=== PATIENT | female | born 1985 | race Caucasian/White ===

== ENCOUNTER 2022-12-03 18:29 | Emergency (ER) | payer OTHER ==
[~2022-12-03] VITALS: Wt 113.4 kg
[~2022-12-03 18:29] MED LIST: AMOXIL500 MG PO; BACTRIM DS 8001 TA1 PO; CIPRO500 MG PO; CLARITIN10 MG PO; COLACE50 MG PO; COMBIVENT1 ARO IH; IRON325 M1 PO; MEDROL DOSEPAK4 MG PO; METHERGINE0.2 MG PO; MIRALAX17 GM/PACK PO; MOTRIN800 MG PO; Miralax Powder255 GM PO; PEPCID20 MG PO; PRENATAL1 TA1 PO; PROCTOSOL HC2.5% RC; Phenergan25 MG PO; SUBUTEX8 MG SL; TORADOL10 MG PO; ZITHROMAX Z PA250 MG PO; ZOFRAN4 MG PO
== END 2022-12-03 19:49 | disposition left against medical advice (07) ==
LOC: ED 18:29
DX: T40.1X1A Poisoning by heroin, accidental (unintentional), initial encounter (principal); F17.200 Nicotine dependence, unspecified, uncomplicated; Z79.899 Other long term (current) drug therapy; Z88.8 Allergy status to other drugs, medicaments and biological substances; Y92.89 Other specified places as the place of occurrence of the external cause

== ENCOUNTER → 2023-01-29 | Outpatient (CLI) | payer OTHER | END | disposition home or self-care (01) | LOC: US 17:11 | PROVIDERS: ATTEND Obstetrics & Gynecology | DX: O12.00 Gestational edema, unspecified trimester (principal); M79.89 Other specified soft tissue disorders; Z3A.00 Weeks of gestation of pregnancy not specified ==

== ENCOUNTER → 2023-02-03 | Outpatient (CLI) | payer OTHER | END | disposition home or self-care (01) | LOC: RAD 15:26 | PROVIDERS: ATTEND Family Medicine | DX: M79.89 Other specified soft tissue disorders (principal); M25.571 Pain in right ankle and joints of right foot; V89.2XXA Person injured in unspecified motor-vehicle accident, traffic, initial encounter; Y93.89 Activity, other specified; Y92.89 Other specified places as the place of occurrence of the external cause; Y99.8 Other external cause status ==

== ENCOUNTER 2023-04-12 13:06 | Emergency (ER) | payer OTHER ==
[~2023-04-12] VITALS: Wt 127.0 kg
== END 2023-04-12 13:29 | disposition short-term general hospital (02) ==
LOC: ED 13:06
DX: O60.10X0 Preterm labor with preterm delivery, unspecified trimester, not applicable or unspecified (principal); F32.A Depression, unspecified; Z88.8 Allergy status to other drugs, medicaments and biological substances; Z3A.39 39 weeks gestation of pregnancy